=== PATIENT | male | born 1995 | race Caucasian/White ===

== ENCOUNTER 2022-07-25 13:42 | Emergency (ER) | payer SELFPAY ==
[~2022-07-25] VITALS: Ht 182.9 cm; Wt 59.9 kg
[2022-07-25 14:35] VITALS: BP_SYST 124
[2022-07-25 18:09] LABS: EOSINOPHILS # (AUTO) 0.1 K/uL (0.0-0.4); EOSINOPHILS % (AUTO) 1.4 % (0.0-4.0); HEMATOCRIT 47.1 % (36-54); HEMOGLOBIN 16.1 g/dL (14.0-18.0); LYMPHOCYTES # (AUTO) 2.1 K/uL (1.0-5.5); MEAN CORPUSCULAR HEMOGLOBIN 32 pg (27-31); MEAN CORPUSCULAR HGB CONC 34 % (32-36); MEAN CORPUSCULAR VOLUME 93 fL (79.0-98.0); MONOCYTES # (AUTO) 0.4 K/uL (0.0-1.0); MONOCYTES % (AUTO) 7.2 % (1.7-9.3); NEUTROPHILS # (AUTO) 2.3 K/uL (1.8-7.7); NEUTROPHILS % (AUTO) 47.4 % (40.0-70.0); PLATELET COUNT (AUTO) 148 K/uL (130-430); RED BLOOD CELL COUNT(AUTO) 5.09 MIL/uL (4.2-6.2); RED CELL DISTRIBUTION WIDTH 13.1 % (9.0-15.0); WHITE BLOOD COUNT (AUTO) 4.9 K/uL (4.8-10.8)
[2022-07-25 18:19] LABS: CALCIUM 9.5 mg/dL (8.4-11.0); CREATININE 0.97 mg/dL (0.55-1.30)
[2022-07-25 18:25] LABS: ALBUMIN 4.6 g/dL (3.4-4.8); TOTAL BILIRUBIN 0.6 mg/dL (0.0-1.0)
--- NOTE | 2022-07-25 19:41 | NUR ---
Patient to ER chair to gown for evaluation. Side rails up. Report given to CHANCE Osborn
--- NOTE | 2022-07-25 19:54 | NUR ---
PT FROM HOME WITH C/O OF BLOOD IN STOOL X 2 WITHIN 2 WEEKS. PT REPORTS MILD ABD PAIN BILATERALLY. PT REPORTS NAUSEA AND DENIES VOMITING. A&O X4, AMBULATORY AND FOLLOWING COMMANDS. VSS.
--- NOTE | 2022-07-25 20:51 | NUR ---
DR. VELASQUEZ WITH PATIENT FOR MSE.
[2022-07-25] MEDS ORDERED: OMEP40CA20 PO (21:12)
[2022-07-25] MEDS ORDERED: PANTOPRAZOLE SODIUM 40 MG TAB PO ONE (21:15)
[2022-07-25 21:22] VITALS: BP_SYST 109
--- NOTE | 2022-07-25 21:22 | NUR ---
Patient given written and verbal discharge instructions and verbalizes understanding. ER DR. VELASQUEZ discussed with patient the results and treatment provided. Patient in stable condition. ID arm band removed. Rx of OMEPROZOLE given. Patient educated on pain management and to follow up with PMD. Pain Scale 0. Opportunity for questions provided and answered. Medication side effect fact sheet provided.
== END 2022-07-25 21:22 | disposition home or self-care (01) ==
LOC: EDSEX 13:42 → SED 13:42
DX: K59.00 Constipation, unspecified (principal); K29.70 Gastritis, unspecified, without bleeding; K62.5 Hemorrhage of anus and rectum; F17.200 Nicotine dependence, unspecified, uncomplicated; Z79.899 Other long term (current) drug therapy
CPT/HCPCS: 36415; 80053; 85025; 99283